=== PATIENT | female | born 1990 | race Two or more races ===

== ENCOUNTER 2021-02-25 07:56 | Emergency (ER) | payer OTHER ==
[~2021-02-25] VITALS: Ht 154.9 cm; Wt 65.0 kg
[2021-02-25 08:04] VITALS: BP 119/76
[2021-02-25] MEDS ORDERED: CARBOXYMETHYLCELLULOSE SODIUM 0.4 ML OPHTHALMIC SOLUTION [PF] OU ONE (09:00)
== END 2021-02-25 09:56 | disposition home or self-care (01) ==
LOC: EMS 07:56
DX: T26.11XA Burn of cornea and conjunctival sac, right eye, initial encounter (principal); T26.12XA Burn of cornea and conjunctival sac, left eye, initial encounter; X58.XXXA Exposure to other specified factors, initial encounter; Y93.89 Activity, other specified; Y92.89 Other specified places as the place of occurrence of the external cause; Y99.0 Civilian activity done for income or pay
CPT/HCPCS: 99282; Z7502; Z7610